=== PATIENT | female | born 1960 | race Hispanic/Latino ===

== ENCOUNTER 2020-03-21 11:29 | Emergency (ER) | payer OTHER, SELFPAY ==
[2020-03-21 11:53] VITALS: BP 111/71; PULSE 79; RESP 16; TEMP 36.7; O2SAT 99
--- NOTE | 2020-03-21 12:06 | ED.EYEPROB ---
HPI - Eye Problem General Chief complaint: Eye Problems Stated complaint: eye problems Time Seen by Provider: 03/21/20 12:05 Source: patient Mode of arrival: ambulatory Limitations: no limitations History of Present Illness HPI Narrative: Jana Valenzuela is a 59 yo female with a PMH of HTN, chronic shoulder pain, high cholesterol, who comes with right eye lid swelling and pain and itching that started yesterday. States his eye was sealed this morning with discharge Related Data Home Medications Medication Instructions Recorded Confirmed atorvastatin 10 mg PO DAILY 03/21/20 03/21/20 citalopram [Celexa] 10 mg PO DAILY 03/21/20 03/21/20 hydrocodone-acetaminophen 1 tablet PO Q6H 03/21/20 03/21/20 metoprolol succinate [Toprol XL] 12.5 mg PO DAILY 03/21/20 03/21/20 tizanidine [Zanaflex] 2 mg PO HS 03/21/20 03/21/20 Allergies Allergy/AdvReac Type Severity Reaction Status Date / Time unknown muscle relaxer Allergy Unknown Uncoded 03/21/20 11:58 Review of Systems Review of Systems: Narrative: CONSTITUTIONAL: Denies fever, chills, sweats. EYES: Denies visual changes, redness, right-sided discharge. ENT: Denies rhinorrhea, congestion, sore throat, otalgia. CARDIOVASCULAR: Denies chest pain, palpitations, edema. RESPIRATORY: Denies dyspnea, wheezing, cough GASTROINTESTINAL: Denies abdominal pain, nausea, vomiting, diarrhea. GENITOURINARY: Denies dysuria, hematuria, abnormal discharge SKIN: Denies rash or itching. NEUROLOGIC: Denies numbness, or focal weakness. PSYCHIATRIC: Denies anxiety or depression. PMFSH Family History Family History (Updated 03/21/20 @ 12:16 by Maritza Andrade CNP) Other Diabetes mellitus Heart disease High cholesterol Hypertension Social History Social History (Updated 03/21/20 @ 12:16 by Maritza Andrade CNP) Smoking status: Current every day smoker Alcohol intake: never Comments At time of signature, I agree with nursing past medical, surgical, social and family history. There is no relevant family history pertinent to the presenting complaint. Exam Narrative: Exam Narrative: GENERAL: This is a well-nourished, well-developed patient, in mild distress. HEAD: normocephalic, atraumatic. EYES: PERRL. Sclera clear/white. R eyelid edema, with difficulty opening eye wid edue to pain, tender to touch. Vision is grossly intact. EARS: External ears normal, auditory canals clear and without drainage, Hearing grossly intact. NOSE: External nose normal without nasal discharge, nares without redness, no rhinorrhea. THROAT: Mucous membranes moist, NECK: Neck supple, non-tender CARDIOVASCULAR: Regular rate and rhythm without murmurs, gallops, or rubs. RESPIRATORY: Clear to auscultation. Breath sounds equal bilaterally. No wheezes, rales, or rhonchi. GASTROINTESTINAL: Abdomen soft, non-tender, SKIN: warm, intact with no suspicious lesions or rash, good texture and turgor. NEURO: awake, alert, and oriented to person, place and time. There were no obvious focal neurologic abnormalities. Steady gait EXTREMITIES: Normal range of motion. BACK: Nontender without deformity Course Vital Signs Vital signs: Vital Signs Temperature 98.1 F 03/21/20 11:53 Pulse Rate 79 03/21/20 11:53 Respiratory Rate 16 03/21/20 11:53 Blood Pressure 111/71 03/21/20 11:53 Pulse Oximetry 99 03/21/20 11:53 Temperature 98.1 F 03/21/20 11:53 Pulse Rate 79 03/21/20 11:53 Respiratory Rate 16 03/21/20 11:53 Blood Pressure 111/71 03/21/20 11:53 Pulse Oximetry 99 03/21/20 11:53 MDM - Eye Problem Differential Diagnosis Differential diagnosis: Likely conjunctivitis, corneal ulcer and other Discharge Plan Discharge Clinical Impression: Acute chalazion Qualifiers: Laterality: right Qualified Code(s): H00.13 - Chalazion right eye, unspecified eyelid Patient Disposition: Home, Self-Care Condition: Stable Instructions: Antibiotic Form, Chalazion (ED) Additional Instr
== END 2020-03-21 12:25 | disposition home or self-care (01) ==
PROVIDERS: Emergency Provider Nurse Practitioner; PCP Internal Medicine
DX: H00.13 Chalazion right eye, unspecified eyelid (principal); I20.9 Angina pectoris, unspecified; E78.00 Pure hypercholesterolemia, unspecified; I10 Essential (primary) hypertension; I25.2 Old myocardial infarction; J45.909 Unspecified asthma, uncomplicated; G47.30 Sleep apnea, unspecified; E11.9 Type 2 diabetes mellitus without complications; F41.9 Anxiety disorder, unspecified
CPT/HCPCS: 99213; G0463

== ENCOUNTER 2020-06-28 06:46 | Outpatient (CLI) | payer OTHER, SELFPAY ==
--- NOTE | ~2020-06-28 | XR_ITS ---
EXAMINATION: CT abdomen pelvis wo/w con, XR abdomen/kub 1V DATE: 06/28/2020 07:34 INDICATION: Microscopic hematuria TECHNIQUE: 1. Computed tomography (CT) of the abdomen and pelvis was performed without intravenous contrast. CT of the abdomen and pelvis was then performed with a total of 130 mL Omnipaque-350 intravenous contras t using a double-bolus technique for simultaneous opacification of the renal parenchyma and renal col lecting system. The dose-length product was 1674.56 mGy-cm. 2. AP view of the abdomen and pelvis was obtained on 2 radiographs. COMPARISON: None FINDINGS: CT UROGRAM: Millimeter right lower lobe nodule. Mosaic attenuation in the lower lungs. Calcified right hilar lymp h nodes along with a few scattered hepatic and splenic calcified calcification is consistent with old granulomatous disease. Heart size is normal. Coronary artery disease with likely stenting along bran ch of the circumflex coronary artery. No pericardial or pleural effusion. Gallbladder, pancreas and b ilateral adrenal glands are normal. Symmetric bilateral renal enhancement with 6 mm nonenhancing cyst at the lower pole of the right kidney. No other renal parenchymal lesions identified. No urolithiasi s. Portions of the distal right and mid to distal left ureters are decompressed remaining unopacified on the postcontrast images. No urothelial filling defects or irregularities along the contrast opaci fied bilateral renal collecting systems and ureters. Bladder is normal. There is mild colonic diverti culosis with a sigmoid predominance. There is no adjacent inflammatory change to suggest diverticuli tis. Small bowel and appendix are normal. Small fat-containing right inguinal hernia. Anteverted uter us and right ovary are normal. Left ovary is not clearly identified. No free intraperitoneal gas or f luid. No pathologically enlarged abdominal or pelvic lymphadenopathy. Bones are unremarkable. ABDOMEN RADIOGRAPH(S): Phlebolith in the inferior right hemipelvis. Moderate amount of stool scattered throughout the colon. No dilated gas-filled loops of bowel to suggest obstruction. IMPRESSION: 1. 6 mm right renal cyst. Otherwise normal bilateral kidneys and ureters with no urolithiasis or lesi ons suspicious for neoplasm. Reviewed, dictated and finalized at location A. IMPRESSION: 1. 6 mm right renal cyst. Otherwise normal bilateral kidneys and ureters with n o urolithiasis or lesions suspicious for neoplasm.
[2020-06-28 07:16] LABS: Estimated Glomerular Filt Rate > 60
== END 2020-06-28 06:47 | disposition home or self-care (01) ==
PROVIDERS: PCP Internal Medicine; Visit Provider Urology
DX: R31.29 Other microscopic hematuria (principal); N28.1 Cyst of kidney, acquired
CPT/HCPCS: 74018; 74178; Q9967

== ENCOUNTER → 2020-08-06 15:49 | Outpatient (CLI) | payer OTHER, SELFPAY ==
--- NOTE | ~2020-08-06 | MM_ITS ---
EXAMINATION: MM screening debbie BI w inés HISTORY: Screening mammogram TECHNIQUE: Craniocaudal and mediolateral oblique 3-D tomosynthesis images were obtained and synthetic 2-D images were generated. CAD analysis was submitted and interpreted. COMPARISON: 04/04/2019 bilateral digital screening mammogram 10/06/2017 diagnostic right digital mammogram 09/30/2017 bilateral digital screening mammogram BREAST PARENCHYMAL COMPOSITION: There are scattered areas of fibroglandular density. FINDINGS: There is a biopsy marker on the left. Stable benign upper outer quadrant 4 mm circumscribed opacity in the right breast, likely a stable benign intramammary lymph node. There is no evidence of suspicious mass, calcification, or architectural distortion to suggest malignancy in either breast. There has been no suspicious interval change. IMPRESSION: 1. No mammographic evidence of malignancy. 2. Recommend routine screening mammography in one year. BI-RADS Category 2: Benign finding(s). Reviewed, dictated and finalized at location A. ICAL REVIEW NURSE
== END ==
PROVIDERS: PCP Internal Medicine; Visit Provider Physician Assistant
DX: Z12.31 Encounter for screening mammogram for malignant neoplasm of breast (principal)
CPT/HCPCS: 77063; 77067

== ENCOUNTER → 2020-12-26 10:59 | Outpatient (CLI) | payer OTHER, SELFPAY ==
--- NOTE | ~2020-12-26 | XR_ITS ---
EXAMINATION: XR hip BI 2V w AP pelvis DATE: 12/26/2020 11:40 INDICATION: Osteoarthritis of the bilateral hips presenting with bilateral hip pain radiating to the groin and buttocks. TECHNIQUE: Anteroposterior view of the pelvis and anteroposterior and frog-leg lateral views of the l eft hip and anteroposterior and frog-leg lateral views of the right hip and were obtained. COMPARISON: CT abdomen and pelvis dated 06/28/2020 FINDINGS: Alignment is normal. No fracture or suspected avascular necrosis. Minimal osteoarthritis at the bilat eral hips with very small marginal osteophytes about the femoral heads and relatively preserved joint spaces. Tiny right os acetabulum. Bilateral sacroiliac joint spaces are also relatively preserved. S oft tissues are unremarkable. IMPRESSION: 1. Minimal bilateral hip osteoarthritis. Reviewed, dictated and finalized at location A.
== END ==
PROVIDERS: Visit Provider Physician Assistant
DX: M16.0 Bilateral primary osteoarthritis of hip (principal)
CPT/HCPCS: 73521

== ENCOUNTER 2021-05-09 14:28 | Emergency (ER) | payer OTHER, SELFPAY ==
[2021-05-09 14:41] VITALS: BP 115/68; PULSE 67; RESP 18; TEMP 36.3; O2SAT 99
--- NOTE | 2021-05-09 15:40 | ED.URI ---
HPI - URI/Sore Throat General Chief Complaint: Upper Respiratory Infection Stated Complaint: cough/cp Source: patient and RN notes reviewed Mode of arrival: ambulatory History of Present Illness HPI Narrative: This is a 60-year-old female who presented to urgent care with complaints of an uncontrollable cough, congestion and wheezing for over 1 week. She did note that occasionally she has shortness of breath patient has a history of bronchitis as well as COPD she currently smokes. She does have a albuterol inhaler at home. She notes that her wheezing has worsened she has a cough. Patient notes that in the past she has been diagnosed with bronchitis and was given antibiotics and steroids. The patient denies CP, palpitation, extremity numbness, lightheadedness, dizziness, constipation, diarrhea, chills, or fever. MD elicited complaint: cough Related Data Home Medications Medication Instructions Recorded Confirmed atorvastatin 10 mg PO DAILY 03/21/20 05/09/21 citalopram [Celexa] 10 mg PO DAILY 03/21/20 05/09/21 metoprolol succinate [Toprol XL] 12.5 mg PO DAILY 03/21/20 05/09/21 tizanidine [Zanaflex] 2 mg PO HS 03/21/20 05/09/21 Allergies Allergy/AdvReac Type Severity Reaction Status Date / Time unknown muscle relaxer Allergy Unknown Uncoded 05/09/21 14:50 Review of Systems Review of Systems: A 14 organ system Review of Systems was performed and pertinent positives included in the HPI, otherwise remaining ROS is negative. [facility] Family History Family History Other Diabetes mellitus Heart disease High cholesterol Hypertension Social History Social History Smoking status: Current every day smoker Alcohol intake: never Exam Narrative: GENERAL: This is a well-nourished, well-developed patient, in no apparent distress. HEAD: normocephalic, atraumatic. EYES: PERRL. Sclera clear/white. Vision is grossly intact. EARS: External ears normal, auditory canals clear and without drainage, TMs normal without perforation. Hearing grossly intact. NOSE: External nose normal with no obvious nasal discharge, nares without redness, no rhinorrhea. THROAT: Mucous membranes moist, posterior pharynx clear. NECK: Neck supple, non-tender without lymphadenopathy, masses or thyromegaly. CARDIOVASCULAR: Regular rate and rhythm without murmurs, gallops, or rubs. RESPIRATORY: Clear to auscultation. Expiratory wheezing GASTROINTESTINAL: Abdomen soft, non-tender, nondistended. Bowel sounds are active. No hepato-splenomegaly, or palpable masses. No guarding. SKIN: warm, intact with no suspicious lesions or rash, good texture and turgor. NEURO: awake, alert, and oriented to person, place and time. There were no obvious focal neurologic abnormalities. Steady gait EXTREMITIES: Normal range of motion. No edema. No calf tenderness. Negative Homans sign bilaterally. BACK: Nontender without deformity or crepitance. No flank tenderness. Course Course Emergency Course: Patient discharged with prednisone and a Z-Eduard Vital Signs Vital signs: Vital Signs Temperature 97.3 F L 05/09/21 14:41 Pulse Rate 67 05/09/21 14:41 Respiratory Rate 18 05/09/21 14:41 Blood Pressure 115/68 05/09/21 14:41 Pulse Oximetry 99 05/09/21 14:41 Temperature 97.3 F L 05/09/21 14:41 Pulse Rate 67 05/09/21 14:41 Respiratory Rate 18 05/09/21 14:41 Blood Pressure 115/68 05/09/21 14:41 Pulse Oximetry 99 05/09/21 14:41 MDM - URI/Sore Throat Differential Diagnosis Differential diagnosis: Likely upper respiratory infection, otitis media, bronchitis and pharyngitis Discharge Plan Discharge Clinical Impression: Bronchitis Patient Disposition: Home, Self-Care Condition: Stable Instructions: Antibiotic Form, Acute Bronchitis (ED) Additional Instructions: Increase fluids especially juices and water [id number]
== END 2021-05-09 15:53 | disposition home or self-care (01) ==
PROVIDERS: Emergency Provider Nurse Practitioner
DX: J20.9 Acute bronchitis, unspecified (principal); J44.0 Chronic obstructive pulmonary disease with (acute) lower respiratory infection; F17.200 Nicotine dependence, unspecified, uncomplicated
CPT/HCPCS: 99213; G0463

== ENCOUNTER → 2022-10-05 11:48 | Outpatient (CLI) | payer OTHER, SELFPAY ==
--- NOTE | ~2022-10-05 | MM_ITS ---
EXAMINATION: MM screening debbie BI w inés HISTORY: Screening TECHNIQUE: Craniocaudal and mediolateral oblique 3-D tomosynthesis images were obtained and synthetic 2-D images were generated. CAD analysis was submitted and interpreted. COMPARISON: Comparison to multiple prior studies sequentially, with oldest reviewed study dated 12/27. BREAST PARENCHYMAL COMPOSITION: There are scattered areas of fibroglandular density. FINDINGS: There is no evidence of suspicious mass, calcification, or architectural distortion to sugg est malignancy in either breast. There has been no suspicious interval change. IMPRESSION: 1. No mammographic evidence of malignancy. 2. Recommend routine screening mammography in one year. BI-RADS Category 1: Negative Reviewed, dictated and finalized at location A. UAL REALITY SPECIALIST
== END ==
PROVIDERS: Visit Provider Nurse Practitioner
DX: Z12.31 Encounter for screening mammogram for malignant neoplasm of breast (principal)
CPT/HCPCS: 77063; 77067

== ENCOUNTER → 2023-02-03 15:30 | Outpatient (CLI) | payer OTHER, SELFPAY ==
--- NOTE | ~2023-02-03 | XR_ITS ---
EXAM: XR shoulder RT min 2V DATE: 02/03/2023 15:50 HISTORY: right shoulder pain . COMPARISON: None available. FINDINGS: Normal mineralization. No fracture or dislocation. No lytic or blastic lesion. Mild AC poppy nt hypertrophy. No erosion or periosteal change. Soft tissues within normal limits. Right hilar calci fied lymph node. IMPRESSION: Mild AC joint osteoarthritis. Reviewed, dictated and finalized at location K.
== END ==
PROVIDERS: PCP Physician Assistant; Visit Provider Physician Assistant
DX: M19.011 Primary osteoarthritis, right shoulder (principal)
CPT/HCPCS: 73030

== ENCOUNTER → 2023-02-11 07:27 | Outpatient (CLI) | payer OTHER, SELFPAY ==
--- NOTE | ~2023-02-11 | MR_ITS ---
MRI of the right shoulder Technique: Axial proton-density fat-sat images, coronal proton density fat-sat and T2 fat-sat images, and sagittal T1-weighted and T2 fat-sat images were acquired. Clinical History: Pain Findings: There is mild AC joint degenerative change. Small subacromial spur present. Coracoclavicula r, coracoacromial, and coracohumeral ligaments appear intact. There is moderate to severe tendinosis of the supraspinatus and infraspinatus tendons. There is suspe cted low-grade bursal surface fraying of the distal supraspinatus tendon. Subscapularis tendon is int act with moderate tendinosis. Tendon of the long head of the biceps is intact. No labral tear identified. Inferior glenohumeral ligament is intact. There is minimal glenohumeral joint effusion. No degenerati ve change at the glenohumeral joint. There is mild fluid distention of the subacromial/subdeltoid bur sa. No muscle atrophy or edema. Impression: Extensive rotator cuff tendinosis with suspected low-grade bursal surface fraying of the distal supra spinatus tendon. Mild subacromial/subdeltoid bursitis. Mild AC joint degenerative change. Reviewed, dictated and finalized at location . Impression: Extensive rotator cuff tendinosis with suspected low-grade bursal surface frayi ng of the distal supraspinatus tendon. Mild subacromial/subdeltoid bursitis. Mild AC joint degenerative change.
== END ==
PROVIDERS: PCP Internal Medicine; Visit Provider Physician Assistant
DX: M25.511 Pain in right shoulder (principal); M75.51 Bursitis of right shoulder
CPT/HCPCS: 73221

== ENCOUNTER 2023-07-14 08:23 | Outpatient (CLI) | payer OTHER, SELFPAY ==
--- NOTE | 2023-07-14 08:44 | ECG_ITS ---
Measurements Intervals [place] Rate: 83 P: 51 KS: 132 QRS: -29 QRSD: 81 T: 34 QT: 360 QTc: 425 Interpretive Statements SINUS RHYTHM LOW QRS VOLTAGE IN PRECORDIAL LEADS CONSIDER INFERIOR INFARCT, AGE INDETERMINATE BASELINE ARTIFACT- I, II, III, AVR, AVL, AVF ABNORMAL ECG COMPARED TO ECG 05/13/2019 09:55:29 NO SIGNIFICANT CHANGES Electronically Signed On 07-14-2023 9:00:16 ONLINE SERVICES MANAGER by Bear Calzada D.O.
[2023-07-14 09:21] LABS: Anion Gap 5 mmol/L (8-16); Blood Urea Nitrogen 16 mg/dL (7-17); Calcium 9.3 mg/dL (8.4-10.2); Carbon Dioxide 31 mmol/L (22-30); Chloride 101 mmol/L (98-107); Estimated Glomerular Filt Rate > 60; Glucose 181 mg/dL (65-110); Potassium 4.7 mmol/L (3.4-5.0); Sodium 137 mmol/L (137-145)
== END 2023-07-14 08:24 | disposition home or self-care (01) ==
LOC: ANHSURGERY 08:30
PROVIDERS: Anesthesiology; PCP Internal Medicine; Visit Provider Orthopaedic Surgery
DX: Z01.812 Encounter for preprocedural laboratory examination (principal); Z01.810 Encounter for preprocedural cardiovascular examination; E11.9 Type 2 diabetes mellitus without complications; R94.31 Abnormal electrocardiogram [ECG] [EKG]
CPT/HCPCS: 36415; 80048; 93005

== ENCOUNTER 2023-07-16 03:02 | Day surgery (SDC) | payer OTHER, SELFPAY ==
[2023-07-13 10:32] VITALS: BMI 26.4
--- NOTE | 2023-07-13 10:42 | PC.NURSE ---
Report to the Outpatient Waiting Room, entrance under the green pavilion located off [facility], at time 11:00 on date 07/16/23. Planned Procedure Time: 1:00. Time changes happen often and if your time is changed the preop area will call you the afternoon before. - You and your visitor will be asked to self-screen and do not enter if you have any COVID symptoms. - A mask is optional within the hospital at this time. Patients may have clear liquids (water, carbonated beverages, clear teas, apple juice) until 3 hours prior to surgery (10:00) with a maximum of 20 ounces. - No food from midnight until time of surgery Take the following medications with a SIP of water the morning of surgery: CITALOPRAM, METOPROLOL, PAIN PILL IF NEEDED DO NOT STOP ANY OF YOUR OTHER PRESCRIPTION MEDICATIONS PRIOR TO SURGERY ?EXCEPT THE FOLLOWING Medications to discontinue per physician: N/A Date to take last dose: N/A Please no make-up, nail belarusian, hairspray, perfume, deodorant, or body powder the day of surgery. No jewelry (including any body piercings) or valuables the day of surgery, leave them at home. Please take a shower or bath the night before, or the morning of, surgery with an antibacterial soap. Wear comfortable, loose fitting clothing. - Jewelry must be removed prior to entering the operating room. Rings and piercings that are not removed may be cut off. - The hospital will not accept responsibility for valuables. - Please leave all valuables, including medications, at home the day of surgery. If you are going home after surgery, a licensed route sales delivery drivers supervisor must drive you home. - NO public transportation without another adult if you receive anesthesia. - We recommend that an adult stay with you for 24 hours following discharge. - We also recommend that you do not drive, make important decision, drink alcoholic beverages, or take any drugs that were not prescribed by your health care provider for at least 24 hours after your discharge time. Follow any additional instructions given to you from your surgeon. If you or anyone in your household have experienced Covid symptoms in the past week, please notify your surgeon or the nurse liaison at the phone number below for possible testing. Telephone instructions given to PT - FABI JO and asked if any additional questions and then verbalized understanding. Patient advised to call surgeon office or pre surgery nurse liaison [phone] if any additional questions.
[2023-07-16] VITALS (13 sets, daily range): BP systolic 112–135; BP diastolic 61–76; PULSE 81–129; RESP 14–28; TEMP 35.9–36.4; O2SAT 88–100
[2023-07-16] MEDS: LACTATED RINGERS 1,000 ML 30 ML IV CONT ×2 (11:15→15:21)
--- NOTE | 2023-07-16 11:45 | WPDHPUPDATE1 ---
History and Physical Update Update Date/Time: 07/16/23 11:45 History and Physical has been reviewed, including an updated exam of the patient. There are NO changes in the patient's condition. Risks, benefits, and alternatives have been discussed and questions answered. Patient agrees to proceed with procedure.
[2023-07-16 11:48] LABS: Glucose Point of Care 138 mg/dl (65-105)
[2023-07-16] MEDS: ACETAMINOPHEN 500 MG TABLET 1000 MG PO (11:59)
[2023-07-16] MEDS: KETOROLAC 15 MG/ML VIAL (*BKC) IV PUSH (12:00)
--- NOTE | 2023-07-16 12:50 | WPDANESEPPF ---
Anes - Initial Pre Proc Eval Procedure: Operation Date: 07/16/23 13:00 Proposed Procedures p Right Shoulder Arthroscopic Subacromial Decompression, Rotator Cuff Debridement - Emanuel Pereira MD Date/Time: 07/16/23 12:50 Surgeon: Emanuel Pereira MD Pre Op Diagnosis: Impingement Synd Right Shoulder Patient Data Age: 62 Gender: F Height: 1.63 m Weight: 71.3 kg Last Vital Signs Temp 36.4 C L 07/16/23 12:07 Pulse 81 07/16/23 12:07 Resp 14 07/16/23 12:07 BP 131/75 07/16/23 12:07 Pulse Ox 97 07/16/23 12:07 O2 Del Method Room Air 07/16/23 12:07 Allergies Allergy/AdvReac Type Severity Reaction Status Date / Time unknown muscle relaxer Allergy Unknown Uncoded 07/16/23 12:17 Home Medications Medication Instructions Recorded Confirmed Type atorvastatin 10 mg tablet 40 mg PO DAILY 03/21/20 07/13/23 History metoprolol succinate 25 mg 12.5 mg PO DAILY 03/21/20 07/13/23 History tablet,extended release 24 hr (Toprol XL) hydrocodone 10 mg-acetaminophen 15 ml PO Q12H PRN Pain 06/18/23 07/16/23 History 325 mg/15 mL (15 mL) oral solution metformin 1,000 mg tablet 1,000 mg PO DAILY 06/18/23 07/13/23 History pantoprazole 40 mg tablet,delayed 40 mg PO QAM 06/18/23 07/13/23 History release citalopram 10 mg tablet 10 mg PO DAILY 07/13/23 07/13/23 History tizanidine 2 mg tablet 2 mg PO HS 07/13/23 07/13/23 History Laboratory Tests 07/16/23 11:45 POC Capillary Glucose 138 H mg/dl (65-105) Patient hx anesthesia problems: none Family hx anesthesia problems: none Results Review: All pre-operative results and documents have been reviewed as part of the pre-operative evaluation. [facility] Past Medical History Medical History COPD (chronic obstructive pulmonary disease) History of stress test History of type 2 diabetes mellitus Surgical History Surgical History History of 3 sections History of heart artery stent (~2012) Family History Family History Other Diabetes mellitus Heart disease High cholesterol Hypertension Social History Social History Smoking packs per day: 0.75 Smoking cigarettes per day: 15.0 Years smoked: 45 Smoking pack-years: 33.75 Smoking status: Current every day smoker Tobacco type: cigarettes Alcohol intake: never Substance use: never Substance use type: does not use Lack of Transportation: No Lack of Food: Never True Current Housing: I Have Housing Concerned About Future Housing: No Difficulty Paying Gas/Electric Bills: No Difficulty Paying for Meds: No Currently Unemployed: No Education: High School Diploma/GED Difficulty w/ Childcare or Family Care: No Living arrangements: with family Spiritual care concerns: No Anes - Eval Final PreProcedure Day of Procedure 07/16/23 12:50 Patient weight: overweight Heart: regular rate and rhythm Lungs: decreased breath sounds Airway: Mallampati scale class II Neurological: alert and oriented Last oral intake: >/= 8 hours ASA classification: III Emergent: no Anesthetic plan: proceed Anesthesia type and monitoring: general ETT and standard monitoring Results Review: All pre-operative results and documents have been reviewed as part of the pre-operative evaluation. Informed Consent: The patient's anesthetic plan and its attendant risks and benefits were discussed with the patient/family/POA. Questions were solicited and answers provided to the satisfaction of the patient/family/POA.
--- NOTE | 2023-07-16 13:17 | WPDANESPNB ---
Anes - Peripheral Nerve Block Date/Time: 07/16/23 13:17 I have discussed with the patient/family/POA the placement of a peripheral nerve block for post-operative pain management, including associated risks, benefits, complications, and side effects. Alternative methods of post-operative analgesia were detailed. Questions were solicited and answers provided to the satisfaction of the patient/family/POA. Time-Out: A pre-procedural Time-Out was completed immediately before starting the procedure and confirmed: Patient Identification, Site, Procedure, Patient Position and the Availability of Requisite Equipment. Clinical Indications: Acute post-operative pain management requested by the operative surgeon. Nerve Block Insertion Note Anes-nerve block: interscalene right Needle: 22 gauge, stimulating, insulated echogenic needle. Needle length: 50 mm Technique: nerve stimulation lost at (mA) and ultrasound Injectate: bupivacaine 0.5% with epi 5 mcg/ml (30ml no epi) and dexamethasone (mg) (4) Observations: tolerated well Complications: none Procedure start time:: 1305 Procedure end time:: 1312
[2023-07-16] MEDS: ceFAZolin 2 GM/D5W 50 ML 2 GM/50 ML BAG IVPB (13:27)
[2023-07-16] MEDS: EPINEPHrine HCL INJ 1 MG/ML AMPUL 3 MG IRRIGATION (14:29)
[2023-07-16 15:46] LABS: Glucose Point of Care 159 mg/dl (65-105)
[2023-07-16] MEDS: fentaNYL CITRATE INJ (*CRX) 100 MCG/2 ML VIAL 25 MCG IV PUSH ×6 (15:47→16:13)
--- NOTE | 2023-07-16 15:47 | W.PM.PROC2 ---
Procedure Note - Detailed Date of Procedure 07/16/23 Pre-op Diagnosis Impingement Synd Right Shoulder Post-op Diagnosis Other (1. Partial thickness rotator cuff tear 2. Subacromial impingement 3. Degenerative labral tear) Procedure Performed Right shoulder 1. Arthroscopic rotator cuff repair 2. Arthroscopic subacromial decompression 3. Arthroscopic labral debridement Surgeon Emanuel Pereira MD Resident Director Rachel Humphries PA-C Anesthesia General and Regional ( interscalene block) Findings Mid grade partial articular tear (30-50% tear) of the supraspinatus treated with repair using the regeneten collagen implant and four KATY soft tissue anchors and 3 Peek bone anchors. Low grade partial tear of the subscapularis, and degenerative SLAP tear with stable biceps; treated with debridement. Hypertrophic and inflamed subacromial bursa. Marked fraying on the undersurface of the acromion, confirming impingement, treated with subacromial decompression. Low grade fraying on the bursal side of the supraspinatus treated with debridement. Description of Procedure Preoperative antibiotics were given. An interscalene block was administered in the preoperative area. The patient was bought brought to the operating room. A general anesthetic was administered. The patient was carefully positioned in the beach chair position. The head and neck were carefully positioned. The non operative extremity was also carefully positioned. The shoulder was prepped and draped in the usual sterile fashion. Examination was performed. Standard posterior and anterior arthroscopic portals were established. Inflow achieved with the arthroscopic pump using saline and epinephrine. The glenohumeral joint was carefully inspected. The articular cartilage was healthy. Mild degenerative SLAP tear. Low grade partial subscapularis tear. Mid grade (30-50% tear) of the supraspinatus. The degenerative tissues were debrided. The biceps and supraspinatus were marked with PDS suture. Attention was turned to the subacromial space. A complete bursectomy was performed. The rotator cuff was lightly debrided where it was frayed. This corresponded to the significant fraying of the undersurface of the acromion. An acromioplasty was performed. With palpation and penetration with the spinal needle, the quality of the cuff remaining tendon was good despite a slightly degenerative appearance on the articular side. It was elected to repair the partial tear. The collagen implant was fixed over the torn area with four KATY soft tissue anchors and 3 Peek bone anchors. Care was taken to stay posterior to the biceps tendon. The arthroscopic instruments were removed. The wounds were closed with 3-0 Monocryl subcuticular suture and steri strips. There were no complications. A sling was applied and the patient brought to the recovery room. Physician magistrate assistant, Rachel Humphries PA-C, required for surgery; including patient positioning, draping, arthroscopic camera operation, maintaining instrument position, anchor placement, wound closure, and dressing and sling placement. Implants [employer] Regeneten collagen implant. 4 KATY soft tissue anchors. 3 Peek bone anchors. Estimated Blood Loss 5 Pathology None sent Complications No immediate complications Condition Stable Disposition PACU [facility] Billing Surgery - Charge Forward: Surgery Billing
--- NOTE | 2023-07-16 16:02 | SUR.PREOP ---
4414 DR. WARREN NOTIFIED RE: PATIENT PERSISTENT DRY COUGH; PATIENT SAYING I CAN'T BREATHE ; COARSE BREATH SOUNDS AND EXP WHEEZES TO LEFT LUNG. RESPIRATORY THERAPIST GAVE ALBUTEROL TREATMENT WHICH QUIETED COUGH; PATIENT STATES SHE'S BREATHING EASIER.
--- NOTE | 2023-07-16 16:24 | SUR.PHASEI ---
CORRECTION: PATIENT ON 8 LITERS OXYGEN PER FM UPON ARRIVAL TO PACU UNTIL 1618.
[2023-07-16] MEDS: oxyCODONE HCL (*CRX) 5 MG TAB IR PO (17:11)
== END 2023-07-16 17:57 | disposition home or self-care (01) ==
PROVIDERS: PCP Internal Medicine; Visit Provider Orthopaedic Surgery
PROC: (CPT 29805; principal; 2023-07-16 13:00)
DX: M75.41 Impingement syndrome of right shoulder (principal); M75.111 Incomplete rotator cuff tear or rupture of right shoulder, not specified as traumatic; M75.81 Other shoulder lesions, right shoulder; G89.18 Other acute postprocedural pain; J44.9 Chronic obstructive pulmonary disease, unspecified; E11.9 Type 2 diabetes mellitus without complications; Z79.84 Long term (current) use of oral hypoglycemic drugs; Z95.5 Presence of coronary angioplasty implant and graft; F17.210 Nicotine dependence, cigarettes, uncomplicated
CPT/HCPCS: 29827; 29826; 64415; 36415; 80048; 82948; 93005; 94640; A4565; A9270; C1713; J0171; J0690; J1100; J1885; J2250; J2405; J2704; J3010; J7120

== ENCOUNTER 2023-10-27 16:51 | Emergency (ER) | payer OTHER, SELFPAY ==
[2023-10-27] VITALS (8 sets, daily range): BP systolic 114–138; BP diastolic 60–79; PULSE 100–131; RESP 17–20; TEMP 36.6–36.8; O2SAT 90–98
--- NOTE | ~2023-10-27 | XR_ITS ---
EXAMINATION: XR chest 2V DATE: 10/27/2023 17:21 INDICATION: Intermittent chest pain. TECHNIQUE: Frontal and lateral views of the chest were obtained. COMPARISON: Chest 2 views 08/23/2018, CT abdomen and pelvis 06/28/2020 FINDINGS: There is mild atelectasis in the lower lung zones. Calcified hilar lymph nodes are consiste nt with old granulomatous disease. No pleural effusion or pneumothorax. The heart size is normal. IMPRESSION: 1. Mild atelectasis in the lower lung zones. Reviewed, dictated and finalized at location E. DEVELOPER
--- NOTE | ~2023-10-27 | CT_ITS ---
EXAMINATION: CTA chest PE protocol DATE: 10/27/2023 20:44 INDICATION: Chest pain. TECHNIQUE: Computed tomography angiography (CTA) of the chest was performed with 100 mL Omnipaque-350 intravenous contrast timed to evaluate the pulmonary arteries. Coronal maximum intensity projection 3D-reconstructions were created by the technologist. Automated exposure control and iterative reconst ruction technique were employed. The dose-length product was 723.70 mGy-cm. COMPARISON: CT abdomen and pelvis 06/28/2020, chest CT 11/27/2013 FINDINGS: There is chronic mosaic attenuation in the lungs. There are a few chronic nodules in the brien ngs measuring up to 4 mm, likely benign. There is mild atelectasis bilaterally. No pleural effusion. Calcified right hilar lymph nodes are consistent with old granulomatous disease. There is mild bilate ral hilar lymphadenopathy, likely reactive. There is no pulmonary embolus. There is mild aortic ather osclerosis. There is mild thoracic spondylosis. IMPRESSION: 1. No pulmonary embolus. 2. Chronic mosaic attenuation in the lungs, likely small airways disease. 3. Mild bilateral hilar lymphadenopathy, likely reactive. Reviewed, dictated and finalized at location E. LE REPAIRER
--- NOTE | 2023-10-27 16:54 | ECG_ITS ---
Measurements Intervals [place] Rate: 129 P: 61 ID: 138 QRS: -4 QRSD: 81 T: 71 QT: 335 QTc: 491 Interpretive Statements SINUS TACHYCARDIA WITH OCCASIONAL VENTRICULAR PREMATURE COMPLEXES BORDERLINE ECG BASELINE ARTIFACT POOR R-WAVE PROGRESSION COMPARED TO ECG 07/14/2023 08:56:14 SINUS TACHYCARDIA NOW PRESENT Electronically Signed On 10-28-2023 12:18:14 HOOP PUNCH AND COILER OPERATOR by Carlitos Nguyen M.D.
[2023-10-27 17:14] LABS: Basophils Percent Auto 0.1 % (0.2-1.2); Eosinophils Absolute Auto 0.1 K/mm3 (0-0.3); Eosinophils Percent Auto 0.6 % (0-4.4); Hematocrit 37.9 % (37.0-47.0); Hemoglobin 12.3 g/dL (12.0-15.0); Immature Granulocyte Absolute 0.04 K/mm3 (0.00-0.031); Immature Granulocyte Percent A 0.4 % (0-0.5); Lymphocytes Absolute Auto 2.66 K/mm3 (0.9-3.2); Lymphocytes Percent Auto 24.9 % (18.3-44.2); Mean Corpuscular HGB Conc 32.5 g/dl (32-36); Mean Corpuscular Hemoglobin 29.2 pg (26-34); Mean Platelet Volume 9.1 fl (7.4-10.4); Monocytes Absolute Auto 0.5 K/mm3 (0.1-0.6); Monocytes Percent Auto 4.2 % (2.6-8.5); Neutrophils Absolute Auto 7.5 K/mm3 (1.3-6.7); Neutrophils Percent Auto 69.8 % (45.5-73.1); Platelet Count Result 337 k/mm3 (150-375); Red Blood Count 4.21 M/mm3 (4.2-5.4); Red Cell Distribution Width 12.9 % (11.5-14.5); White Blood Count 10.7 K/mm3 (4.5-10.0)
[2023-10-27 17:24] LABS: Alanine Aminotransferase 18 U/L (6-35); Alkaline Phosphatase 113 U/L (38-126); Anion Gap 8 mmol/L (8-16); Aspartate Amino Transferase 23 U/L (14-36); Bilirubin,Total 0.5 mg/dL (0.2-1.3); Blood Urea Nitrogen 18 mg/dL (7-17); Calcium 8.8 mg/dL (8.4-10.2); Carbon Dioxide 28 mmol/L (22-30); Chloride 99 mmol/L (98-107); Estimated CRCL calculation 50 ml/min; Estimated Glomerular Filt Rate 56; Glucose 312 mg/dL (65-110); Lipase 120 U/L (23-300); Prothrombin Time 13.7 Seconds (11.1-14.7); Sodium 135 mmol/L (137-145)
[2023-10-27 17:35] LABS: Troponin I < 0.012 ng/mL (0.000-0.034)
--- NOTE | 2023-10-27 19:06 | ED.CHESTPAIN ---
HPI - Chest Pain General Chief Complaint: Chest Pain Stated Complaint: CHEST PAIN Time Seen by Provider: 10/27/23 18:59 Source: patient Mode of arrival: ambulatory Limitations: no limitations History of Present Illness HPI narrative: Patient presents with episodic chest pain. She states for approximately 2 weeks she has had approximately 3 episodes a day of crushing chest pain that radiates to her back and shoulder as well as her right jaw. Episodes last approximately 1 minute each. In addition she has whole body itching including hands and genitalia. She does experience shortness of breath with episodes but not at rest. Half [id number] smoker. She does note that she sees a painter foreman and receives injections she is also on hydrocodone q.6 hours. she denies any fevers. She states this has never happened before. She does have an occasional cough. no lower extremity edema. She did have a myocardial infarction in 2012 requiring a stent but is not on any anticoagulation. She confirms her medications as below, didn't take them today. She does see Dr. Freeman is a ase master mechanic through [facility] in [place]. She did present to cardiology today and they noted that want to do a stress test and additional testing in the coming days. Has a PCP Dr. Salazar. She states she is on metoprolol for cardiac protection and sinus tachycardia, not HTN. Related Data Home Medications Medication Instructions Recorded Confirmed atorvastatin 10 mg tablet 40 mg PO DAILY 03/21/20 08/02/23 metoprolol succinate 25 mg 12.5 mg PO DAILY 03/21/20 08/02/23 tablet,extended release 24 hr (Toprol XL) hydrocodone 10 mg-acetaminophen 15 ml PO Q12H PRN Pain 06/18/23 08/02/23 325 mg/15 mL (15 mL) oral solution metformin 1,000 mg tablet 1,000 mg PO DAILY 06/18/23 08/02/23 pantoprazole 40 mg tablet,delayed 40 mg PO QAM 06/18/23 08/02/23 release citalopram 10 mg tablet 10 mg PO DAILY 07/13/23 08/02/23 tizanidine 2 mg tablet 2 mg PO HS 07/13/23 08/02/23 Allergies Allergy/AdvReac Type Severity Reaction Status Date / Time unknown muscle relaxer Allergy Unknown Uncoded 08/02/23 08:22 [facility] Past Medical History Medical History (Updated 10/29/23 @ 00:01 by Soo Trujillo) COPD (chronic obstructive pulmonary disease) History of myocardial infarction History of stress test History of type 2 diabetes mellitus Surgical History Surgical History (Updated 08/02/23 @ 08:23 by Rosy Felipe MA) History of 3 sections History of heart artery stent (~2012) Status post right rotator cuff repair (~07/16/23) Subacromial decompression and RC debridement Family History Family History Other Diabetes mellitus Heart disease High cholesterol Hypertension Social History Social History Smoking packs per day: 0.5 Smoking cigarettes per day: 10.0 Years smoked: 45 Smoking pack-years: 22.50 Smoking status: Current every day smoker Tobacco type: cigarettes Alcohol intake: never Substance use: never Substance use type: does not use Lack of Transportation: No Lack of Food: Never True Current Housing: I Have Housing Concerned About Future Housing: No Difficulty Paying Gas/Electric Bills: No Difficulty Paying for Meds: No Currently Unemployed: No Education: High School Diploma/GED Difficulty w/ Childcare or Family Care: No Living arrangements: with family Spiritual care concerns: No Exam Narrative: GENERAL: Well-appearing, well-nourished, and in no acute distress. HEAD: Normocephalic, atraumatic. EYES: Non injected, non icteric ENT: Nares clear, no rhinorrhea or epistaxis. NECK: Supple. CHEST: Clear to auscultation. No respiratory distress. no wheezes, areas of consolidation, rhonchi or stridor. Speaking in full sentences. HEART: Tachycardic rate and
[2023-10-27] MEDS: ASPIRIN 81 MG CHEWABLE TABLET 324 MG PO (19:31)
[2023-10-27] MEDS: hydrOXYzine HCL 25 MG TABLET PO (19:33)
[2023-10-27] MEDS: SODIUM CHLORIDE 0.9% IV 1,000 ML 999 ML IV CONT (19:40)
--- NOTE | 2023-10-27 19:45 | ECG_ITS ---
Measurements Intervals [place] Rate: 109 P: 53 IA: 116 QRS: -11 QRSD: 86 T: 52 QT: 348 QTc: 470 Interpretive Statements SINUS TACHYCARDIA WITH SHORT IA INTERVAL BORDERLINE ECG POOR R-WAVE PROGRESSION COMPARED TO ECG 10/27/2023 16:57:09 NO SIGNIFICANT CHANGES Electronically Signed On 10-28-2023 12:20:15 TEMPLATE CUTTER by Carlitos Nguyen M.D.
[2023-10-27] MEDS: MORPHINE SULFATE (*CRX) 4 MG/ML INJ IV PUSH (19:46)
[2023-10-27 19:49] LABS: D Dimer 0.68 ug/mL (<0.48)
[2023-10-27 20:15] LABS: Troponin I < 0.012 ng/mL (0.000-0.034)
[2023-10-27 20:34] LABS: Thyroid Stimulating Hormone 0.309 uIU/mL (0.465-4.680)
[2023-10-27 21:04] LABS: Influenza A QL RT-PCR Negative (Negative); Influenza B QL RT-PCR Negative (Negative); RSV RNA, RT-PCR Negative (Negative); SARS-CoV-2 RNA PCR Negative (Negative)
[2023-10-27 22:07] LABS: Appearance Urine Clear (Clear); Bacteria Urine None Seen /hpf; Bilirubin Urine Negative (Negative); Blood Urine Trace (Negative); Color Urine Yellow (Yellow); Glucose Urine UA 2+ mg/dL (Negative); Ketones Urine Negative (Negative); Leukocyte Esterase Ur Negative LEU/UL (Negative); Nitrate Urine Negative (Negative); Non Pathogenic Casts 0-2; Protein Urine Negative (Negative); RBC Urine 0-2 /hpf (0-2); Specific Grav Ur 1.022 (1.001-1.035); Squamous Epithelial Cell Urine None seen /hpf (Few); Urobilinogen Urine 0.2 mg/dL (<2.0); WBC Urine 0-5 /hpf
[2023-10-27 22:09] LABS: Add Urine Microscopic? YES
[2023-10-27] MEDS: BELLADONNA ALK/PHENOB ELIX 10 ML, MAG HYDROX/ALUMINUM HYD/SIMETH 30 ML, LIDOCAINE HCL 2... PO (22:53)
[2023-10-27 23:08] LABS: Trichomonas Vag PCR NOT DETECTED (NOT DETECTE)
[2023-10-27 23:33] LABS: Chlamydia trachomatis NOT DETECTED (NOT DETECTE); Neisseria gonorrhoeae PCR NOT DETECTED (NOT DETECTE)
--- NOTE | 2023-10-27 23:34 | ECG_ITS ---
Measurements Intervals [place] Rate: 104 P: 45 AK: 116 QRS: -3 QRSD: 84 T: 65 QT: 358 QTc: 471 Interpretive Statements SINUS TACHYCARDIA WITH SHORT [place] INTERVAL BORDERLINE ECG POOR R-WAVE PROGRESSION COMPARED TO ECG 10/27/2023 19:47:39 NO SIGNIFICANT CHANGES Electronically Signed On 10-28-2023 12:22:32 PEER EDUCATOR by Carlitos Nguyen M.D.
[2023-10-27 23:57] LABS: Troponin I < 0.012 ng/mL (0.000-0.034)
[2023-10-28] MEDS: PANTOPRAZOLE 40 MG TABLET PO (00:44)
[2023-10-28] MEDS: ACETAMINOPHEN 500 MG TABLET 1000 MG PO (00:44)
[2023-10-28] MEDS: KETOROLAC 15 MG/ML VIAL (*BKC) IV PUSH (00:45)
--- NOTE | 2023-10-28 01:08 | PC.NURSE ---
Patient itchy and has hives all over. Dr. Camp made aware.
[2023-10-28] MEDS: diphenhydrAMINE HCl INJ 50 MG/ML VIAL 25 MG IV PUSH (01:15)
[2023-10-28 01:26] VITALS: BP 99/60; PULSE 112; RESP 15; O2SAT 96
== END 2023-10-28 01:40 | disposition home or self-care (01) ==
PROVIDERS: Emergency Medicine; Emergency Provider Student in an Organized Health Care Education/Training Program; PCP Internal Medicine
DX: R07.9 Chest pain, unspecified (principal); D72.829 Elevated white blood cell count, unspecified; K21.9 Gastro-esophageal reflux disease without esophagitis; N76.0 Acute vaginitis; K22.4 Dyskinesia of esophagus; R00.0 Tachycardia, unspecified; F17.210 Nicotine dependence, cigarettes, uncomplicated; J44.9 Chronic obstructive pulmonary disease, unspecified; I25.10 Atherosclerotic heart disease of native coronary artery without angina pectoris; E11.65 Type 2 diabetes mellitus with hyperglycemia; Z79.84 Long term (current) use of oral hypoglycemic drugs
CPT/HCPCS: 36415; 71046; 71275; 80053; 81001; 83690; 83735; 84439; 84443; 84484; 85025; 85380; 85610; 85730; 87491; 87591; 87637; 87661; 93005; 96361; 96374; 96375; 99284; A9270; J1200; J1885; J2270; J7030; Q9967

== ENCOUNTER 2024-01-26 16:46 | Emergency (ER) | payer OTHER, SELFPAY ==
[2024-01-26 17:00] VITALS: BP 109/83; PULSE 123; RESP 16; TEMP 37.1; O2SAT 98
--- NOTE | 2024-01-26 18:28 | ED.SKABFB ---
HPI - Skin/Abscess/Foreign Bdy General Chief complaint: Skin/Abscess/Foreign Body Stated complaint: Rash Time Seen by Provider: 01/26/24 18:28 Source: patient Mode of arrival: ambulatory Limitations: no limitations History of Present Illness HPI narrative: 63-year-old female presented for complaint of rash and itching to entire body over the past several days. She also endorses itching 3 weeks ago for which she was given a steroid shot by her PCP and symptoms resolved briefly. Denies lip, tongue, or throat swelling, shortness of breath or wheezing. Denies changes to soap, detergent, lotion, or any other exposures. No one else in the house or any contacts with similar symptoms. Related Data Home Medications Medication Instructions Recorded Confirmed atorvastatin 10 mg tablet 40 mg PO DAILY 03/21/20 01/26/24 metoprolol succinate 25 mg 12.5 mg PO DAILY 03/21/20 01/26/24 tablet,extended release 24 hr (Toprol XL) hydrocodone 10 mg-acetaminophen 15 ml PO Q12H PRN Pain 06/18/23 01/26/24 325 mg/15 mL (15 mL) oral solution pantoprazole 40 mg tablet,delayed 40 mg PO QAM 06/18/23 01/26/24 release citalopram 10 mg tablet 10 mg PO DAILY 07/13/23 01/26/24 tizanidine 2 mg tablet 2 mg PO HS 07/13/23 01/26/24 glipizide 5 mg tablet, extended 5 mg PO DIRECTED 01/26/24 01/26/24 release 24 hr Allergies Allergy/AdvReac Type Severity Reaction Status Date / Time unknown muscle relaxer Allergy Unknown Uncoded 08/02/23 08:22 Review of Systems Review of Systems: CONSTITUTIONAL: Denies body aches, fever, chills, or sweats. EYES: Denies visual changes, redness, or discharge. ENT: Denies rhinorrhea, congestion CARDIOVASCULAR: Denies chest pain, palpitations, or edema. RESPIRATORY: Denies cough or dyspnea. GASTROINTESTINAL: Denies abdominal pain, nausea, vomiting, or diarrhea. SKIN: reports rash and itching MUSCULOSKELETAL: Denies back pain, joint pain, or myalgia. NEUROLOGIC: Denies headache, numbness, tingling, or weakness. [facility] Past Medical History Medical History COPD (chronic obstructive pulmonary disease) History of myocardial infarction History of stress test History of type 2 diabetes mellitus Surgical History Surgical History History of 3 sections History of heart artery stent (~2012) Status post right rotator cuff repair (~07/16/23) Subacromial decompression and RC debridement Family History Family History Other Diabetes mellitus Heart disease High cholesterol Hypertension Social History Social History Smoking packs per day: 0.5 Smoking cigarettes per day: 10.0 Years smoked: 45 Smoking pack-years: 22.50 Smoking status: Current every day smoker Tobacco type: cigarettes Alcohol intake: never Substance use: never Substance use type: does not use Lack of Transportation: No Lack of Food: Never True Current Housing: I Have Housing Concerned About Future Housing: No Difficulty Paying Gas/Electric Bills: No Difficulty Paying for Meds: No Currently Unemployed: No Education: High School Diploma/GED Difficulty w/ Childcare or Family Care: No Living arrangements: with family Spiritual care concerns: No Comments At time of signature, I have reviewed and agree with nursing past medical, surgical, social and family history unless otherwise noted. Please see nursing chart for further information. There is no relevant family history pertinent to the presenting complaint Exam Narrative: GENERAL: Well-appearing HEAD: Normocephalic, atraumatic. EYES: conjunctivae clear, and EOMI. ENT: Mucous membranes moist. Oropharynx and lips without edema, erythema or lesions. NECK: Supple. No lymphadenopathy CHEST: Clear to auscultation.
== END 2024-01-26 18:47 | disposition home or self-care (01) ==
PROVIDERS: Emergency Provider Nurse Practitioner Family; PCP Internal Medicine
DX: L50.9 Urticaria, unspecified (principal); F17.210 Nicotine dependence, cigarettes, uncomplicated; J44.9 Chronic obstructive pulmonary disease, unspecified; E11.9 Type 2 diabetes mellitus without complications; I25.2 Old myocardial infarction
CPT/HCPCS: 99213; G0463